=== PATIENT | male | born 1960 | race African-American/Black ===

== ENCOUNTER 2017-08-23 07:59 | Inpatient (IN) | payer OTHER ==
[~2017-08-23] VITALS: Ht 165.1 cm; Wt 117.0 kg
--- NOTE | ~2017-08-23 | EKG ---
[address] [place] [address] ELECTROCARDIOGRAM REPORT Name: ELENA BARNES Room #: [facility] M.R.#: [id number] Admission: Attend Phys: Discharge: Date of : 60 Report #: [id number] THIS REPORT FOR: //name// [facility] ED Test Date: 2017-08-23 Test Time: 08:01:55 Pat Name: ELENA BARNES Department: Room: Gender: M Physiotherapy Assistant: [facility] : 1960 Requested By: Tex Garrido Order Number: [id number] MD: Benjamín Jacobo Measurements Intervals [place] Rate: 113 P: IA: QRS: -47 QRSD: 87 T: 59 QT: 339 QTc: 465 Interpretive Statements Atrial fibrillation Left anterior fascicular block No previous ECG available for comparison Electronically Signed On 08-23-2017 8:18:27 CDT by Benjamín Jacobo [email or web address] <ELECTRONICALLY SIGNED> By: Benjamín Jacobo MD, [facility] 08/23/17 0818 0801 0801 Benjamín Jacobo MD, FACC /EPI
--- NOTE | ~2017-08-23 | CATHLAB ---
[facility] [place] [address] INVASIVE PROCEDURE REPORT Name: ELENA BARNES Room #: 219-P ADM IN M.R.#: [id number] Admission: 08/23/17 Attend Phys: Meera Baird MD Discharge: Date of : 60 Date of Service: 08/25/17 1625 Report #: [id number] THIS REPORT FOR: //name// APPROVED REPORT Study performed: 08/25/2017 10:57:55 Patient Details Patient Status: In-Patient Room #: The patient is a 57 year-old male Event Personnel Osei Posadas Leather Sprayer, Nate Trevino RN RN, Dirk Salomon RN, Dominga Simons [place], Christine RTNancie Monitor Procedures Performed Left Heart Cath w/or w/o Coronaries [id number] [facility] Indication Positive stress test, Chest pain Risk Factors Hypercholesterolemia, Hypertension, Diabetes Procedure Narrative The Right Groin^ was infiltrated with 1% Lidocaine subcutaneous anesthesia. A PINNACLE 4FR Sheath #[id number] sheath was inserted into the RFA^. Coronary angiography was performed using coronary diagnostic catheters. The right coronary system was accessed and visualized with a JR4 catheter. The left coronary system was accessed and visualized with a JL4 catheter. The left ventricle was accessed and visualized with a PIGTAIL catheter. Left ventricular/Aortic Valve gradient assessed via catheter pullback. Left ventriculogram was performed in 30 degree projection. Hemostasis was obtained with manual pressure following sheath removal without any complications. The patient tolerated the procedure well and there were no complications associated with the procedure. There was no hematoma. Intraoperative Conscious Sedation Sedation start time: 11.36 Case end Time: 11.58 Fentanyl 50 mcg Versed 1.5 mg [facility] [address] [place] [address] INVASIVE PROCEDURE REPORT Name: ELENA BARNES Room #: 219-P [facility] IN ..#: [id number] Admission: 08/23/17 Attend Phys: Meera Baird MD Discharge: Date of : 60 Date of Service: 08/25/17 1625 Report #: [id number] Fluoro Time: 1.28 minutes Dose: DAP 4166.70 cGycm2 595 mGy Contrast Type and Amount: Omnipaque 120 ml Coronary Angiography The patient's coronary anatomy is right dominant. Diagnostic Cath Left Main Patent vessel, no flow-limiting lesions. LAD Moderate size caliber vessel, traveling down the anterior wall and terminating in the distal inferior segment. There are no flow-limiting lesions in the LAD. Diagonal 1 Patent vessel, with no flow-limiting lesions. Circumflex Codominant vessel, supplying several obtuse marginal arteries. OM1 Patent vessel, with no flow-limiting lesions. OM2 Patent vessel, with no flow-limiting lesions. OM3 Patent vessel, with no flow-limiting lesions. Right Coronary Patent vessel, with no flow-limiting lesions. Left Ventriculography The left ventricle is normal in size with normal contractility. The left ventricular ejection fraction is estimated to be >55%. Hemodynamics The aortic pressure is 165/96 mmHg with a mean of 122 mmHg. The left ventricular pressure is 166/13 mmHg with a mean of mmHg. The left ventricular end diastolic pressure is 28 mmHg. There was no gradient across the aortic valve upon pullback. Pullback from the left ventricle to the aorta revealed no gradient across the aortic valve. Conclusion 1. Angiographically normal coronary arteries. 2. Codominant system. 3. Normal LV systolic function. 4. Recommend risk factor management. <ELECTRONICALLY SIGNED> By: Osei Posadas MD 08/25/17 1625 24 162 Osei Posadas MD /INF
--- NOTE | ~2017-08-23 | 2DMMODE ---
[facility] [address] [place] [address] 2 D/M-MODE ECHOCARDIOGRAM Name: ELENA BARNES Room #: 219-P ADM IN M.R.#: [id number] Admission: 08/23/17 Attend Phys: Meera Baird MD Discharge: Date of : 60 Date of Service: 08/23/17 1342 Report #: [id number] THIS REPORT FOR: //name// APPROVED REPORT Study performed: 08/23/2017 12:49:13 EXAM: Comprehensive 2D, Doppler, and color-flow Echocardiogram Patient Location: Bedside Room #: 219 Status: routine BSA: 2.16 HR: 71 bpm BP: 137/89 mmHg Rhythm: Atrial Fibrillation Other Information Study Quality: Good Indications Short of breath, palpitations, Afib. Hx: Afib with cardioversion in 2006. HTN, HLP 2D Dimensions RVDd: 34.49 mm LVEF(%): 59.76 (>50%) IVSd: 12.55 (7-11mm) LVOT Diam: 21.95 (18-24mm) LVDd: 45.18 mm PWd: 9.96 (7-11mm) Ascending Ao: 33.38 (22-36mm) LVDs: 30.88 (25-40mm) Aortic Root: 34.34 mm Scott's LVEF: 59.76 % Volumes Left Atrial Volume (Systole) Single Plane 4CH: 53.12 mL Single Plane 2CH: 69.92 mL LA ESV Index: 31.00 mL/m2 Aortic Valve AoV Peak King.: 1.24 m/s AO Peak Gr.: 6.21 mmHg LVOT Max P.27 mmHg LVOT Max V: 0.90 m/s EMILIE Vmax: 2.76 cm2 Mitral Valve MV Decel. Time: 180.96 ms [facility] [place] [address] 2 D/M-MODE ECHOCARDIOGRAM Name: ELENA BARNES Room #: 219-P [facility] IN M.R.#: [id number] Admission: 08/23/17 Attend Phys: Meera Baird MD Discharge: Date of : 60 Date of Service: 08/23/17 1342 Report #: [id number] MV E Max King.: 1.00 m/s Pulmonary Valve PV Peak King.: 0.81 m/s PV Peak Gr.: 2.65 mmHg Pulmonary Vein P Vein S: 0.39 m/s P Vein D: 0.52 m/s P Vein S/D Ratio: 0.75 Tricuspid Valve RAP Estimate: 5.00 mmHg Left Ventricle The left ventricle is normal size. There is normal LV segmental wall motion. Mild basal septal hypertrophy is present. Left ventricular systolic function is normal. LVEF is 60-65%. This study is not technically sufficient to allow evaluation of the LV diastolic function due to atrial fibrillation. Right Ventricle The right ventricle is normal size. The right ventricular systolic function is normal. Atria The left atrium size is normal. The right atrium size is normal. Aortic Valve Aortic valve leaflets are mildly thickened. No aortic regurgitation is present. There is no aortic valvular stenosis. Mitral Valve The mitral valve is normal in structure. Trace mitral regurgitation. No evidence of mitral valve stenosis. Tricuspid Valve The tricuspid valve is normal in structure. There is no tricuspid valve regurgitation noted. Unable to assess PA pressure. Pulmonic Valve The pulmonary valve is normal in structure. Trace pulmonic regurgitation. Great Vessels The aortic root is normal in size. The ascending aorta is normal in [facility] [address] [place] [address] 2 D/M-MODE ECHOCARDIOGRAM Name: ELENA BARNES Room #: 219-P [facility] IN .R.#: [id number] Admission: 08/23/17 Attend Phys: Meera Baird MD Discharge: Date of : 60 Date of Service: 08/23/17 1342 Report #: [id number] size. IVC is normal in size and collapses >50% with inspiration. Pericardium There is no pericardial effusion. <Conclusion> The left ventricle is normal size. Left ventricular systolic function is normal. The right ventricle is normal size. The left atrium size is normal. The right atrium size is normal. There is no aortic valvular stenosis. Trace mitral regurgitation. There is no tricuspid valve regurgitation noted. Unable to assess PA pressure. There is no pericardial effusion. <ELECTRONICALLY SIGNED> By: Osei Posadas MD 08/23/171341 41 41 Osei Posadas MD /INF
[2017-08-23 08:02] VITALS: BP 200/96
[2017-08-23 08:28] LABS: HEMATOCRIT 44.3 % (42.0-52.0); HEMOGLOBIN 14.4 gm/dL (14.0-18.0); MCH 25.8 pg (26.0-34.0); MCHC 32.6 g/dL (28.0-37.0); MCV 79.2 fL (80.0-100.0); PLATELET COUNT 251 thou/uL (150-400); RDW 15.6 % (10.5-14.5); WBC 7.5 thou/uL (4.0-11.0)
[2017-08-23 08:33] LABS: ANION GAP 4 mmol/L (7-16); BUN 17 mg/dL (7-18); CALCIUM 8.8 mg/dL (8.5-10.1); CHLORIDE 103 mmol/L (98-107); CO2 29 mmol/L (21-32); CREATININE 1.5 mg/dL (0.7-1.3); GLUCOSE 140 mg/dL (74-106); POTASSIUM 3.6 mmol/L (3.5-5.1); SODIUM 136 mmol/L (136-145)
[2017-08-23 08:42] LABS: TROPONIN-I <0.06 ng/mL (<0.06)
[2017-08-23 09:13] LABS: PLATELET ESTIMATE NORMAL
[2017-08-23 10:36] VITALS: BP 139/79
[2017-08-23 11:06] VITALS: BP 124/74
[2017-08-23 11:17] VITALS: BP 137/89
[2017-08-23 13:09] LABS: CHOLESTEROL 154 mg/dL (<200); HDL CHOLESTEROL 30 mg/dL (>40); LDL CHOLESTEROL 87 mg/dL (<100); TC:HDL 5.1 Ratio (Not establshd); TRIGLYCERIDE 186 mg/dL (<150); VLDL 37 mg/dL (<40)
[2017-08-23] MEDS ORDERED: FLONASE 0.05%50 MCG NASAL (17:39)
[2017-08-23] MEDS ORDERED: TRAMADOL 50 MG50 MG PO (17:40)
[2017-08-23] MEDS ORDERED: CRESTOR10 MG PO (17:41)
[2017-08-23] MEDS ORDERED: ZANTAC 150MG T150 MG PO (17:42)
[2017-08-23] MEDS ORDERED: IBUPROFEN 200200 M1 PO (17:43)
[2017-08-23] MEDS ORDERED: CLARITIN10 MG PO (17:44)
[2017-08-23] MEDS ORDERED: ULTRACET TABLET1 TAB PO (17:46)
[2017-08-23] MEDS ORDERED: CHILDREN'S ASPI81 M1 PO (17:54)
[2017-08-23] MEDS ORDERED: METFORMIN HCL500 MG PO (17:55)
[2017-08-23] MEDS ORDERED: VITAMIN D1000 UNI1 PO (17:55)
[2017-08-23] MEDS ORDERED: CALCIUM 600 +1 EAC1 PO (17:56)
[2017-08-23 18:15] LABS: AMP/METHAMP Negative (Negative); BARBITURATES Negative (Negative); BENZODIAZEPINES Negative (Negative); COCAINE Negative (Negative); METHADONE Negative (Negative); OPIATES Negative (Negative); PCP Negative (Negative)
[2017-08-23 20:34] VITALS: BP 124/88
[2017-08-24 00:41] VITALS: BP 109/76
[2017-08-24 04:13] VITALS: BP 139/75
[2017-08-24 04:51] LABS: HEMATOCRIT 43.6 % (42.0-52.0); HEMOGLOBIN 14.3 gm/dL (14.0-18.0); MCH 25.6 pg (26.0-34.0); MCHC 32.7 g/dL (28.0-37.0); MCV 78.3 fL (80.0-100.0); RBC 5.57 mil/uL (4.50-6.00); RDW 15.6 % (10.5-14.5); WBC 7.5 thou/uL (4.0-11.0)
[2017-08-24 05:17] LABS: CREATININE 1.4 mg/dL (0.7-1.3)
[2017-08-24 07:44] LABS: GLYCOHEMOGLOBIN (HGB A1C) 6.1 % (4.8-5.6)
[2017-08-24 10:55] VITALS: BP 122/84
[2017-08-24 16:20] VITALS: BP 128/78
[2017-08-25] VITALS (13 sets, daily range): BP systolic 104–130; BP diastolic 59–82
[2017-08-25 05:04] LABS: CALCIUM 8.5 mg/dL (8.5-10.1); CREATININE 1.4 mg/dL (0.7-1.3); POTASSIUM 3.9 mmol/L (3.5-5.1)
[2017-08-25 05:07] LABS: HEMATOCRIT 41.8 % (42.0-52.0); HEMOGLOBIN 13.4 gm/dL (14.0-18.0); MCH 25.3 pg (26.0-34.0); MCHC 32.2 g/dL (28.0-37.0); MCV 78.8 fL (80.0-100.0); RBC 5.31 mil/uL (4.50-6.00); RDW 15.6 % (10.5-14.5); WBC 5.9 thou/uL (4.0-11.0)
[2017-08-25] MEDS ORDERED: CRESTOR10 MG PO (16:09)
[2017-08-25] MEDS ORDERED: METOPROLOL SUCC50 MG PO (16:09)
[2017-08-25] MEDS ORDERED: METFORMIN HCL500 MG PO (16:13)
== END 2017-08-25 19:02 | disposition home or self-care (01) | DRG 287 ==
LOC: ER 07:59 → 2N 10:04 → EROBS 10:04 → 2N 11:29
PROVIDERS: Emergency Medicine; Hospitalist; Internal Medicine; Nurse Practitioner Gerontology
PROC: B2151ZZ Fluoroscopy of Left Heart using Low Osmolar Contrast (ICD-10-PCS; principal; 2017-08-25)
PROC: 4A023N7 Measurement of Cardiac Sampling and Pressure, Left Heart, Percutaneous Approach (ICD-10-PCS; principal; 2017-08-25)
PROC: B2111ZZ Fluoroscopy of Multiple Coronary Arteries using Low Osmolar Contrast (ICD-10-PCS; principal; 2017-08-25)
DX: I48.0 Paroxysmal atrial fibrillation (principal); N17.9 Acute kidney failure, unspecified; I10 Essential (primary) hypertension; M19.90 Unspecified osteoarthritis, unspecified site; K21.9 Gastro-esophageal reflux disease without esophagitis; E78.5 Hyperlipidemia, unspecified; E11.65 Type 2 diabetes mellitus with hyperglycemia; G47.33 Obstructive sleep apnea (adult) (pediatric); E03.9 Hypothyroidism, unspecified; M54.40 Lumbago with sciatica, unspecified side; Z79.51 Long term (current) use of inhaled steroids; Z79.82 Long term (current) use of aspirin; Z79.84 Long term (current) use of oral hypoglycemic drugs; Z79.899 Other long term (current) drug therapy; Z88.8 Allergy status to other drugs, medicaments and biological substances
CPT/HCPCS: 10081

== ENCOUNTER 2021-02-13 21:35 | Emergency (ER) | payer OTHER ==
[~2021-02-13] VITALS: Ht 165.1 cm; Wt 122.5 kg
[~2021-02-13 21:35] MED LIST: CALCIUM 600 +1 EAC1 PO; CHILDREN'S ASPI81 M1 PO; CLARITIN10 MG PO; CRESTOR10 MG PO; FLONASE 0.05%50 MCG NASAL; IBUPROFEN 200200 M1 PO; METFORMIN HCL500 MG PO; METOPROLOL SUCC50 MG PO; TRAMADOL 50 MG50 MG PO; ULTRACET TABLET1 TAB PO; VITAMIN D1000 UNI1 PO; ZANTAC 150MG T150 MG PO
[2021-02-13 21:38] VITALS: BP 164/79
[2021-02-13] MEDS ORDERED: AZITHROMYCIN 2250 MG PO (22:28)
[2021-02-13] MEDS ORDERED: TESSALON PERLE100 MG PO (22:28)
[2021-02-13] MEDS ORDERED: PROAIR HFA8.5 GM INH (22:28)
== END 2021-02-13 23:03 | disposition home or self-care (01) ==
LOC: ER 21:35
DX: U07.1 COVID-19 (principal); J12.82 Pneumonia due to coronavirus disease 2019; I48.91 Unspecified atrial fibrillation; Z98.890 Other specified postprocedural states; Z79.84 Long term (current) use of oral hypoglycemic drugs; Z79.82 Long term (current) use of aspirin; Z79.899 Other long term (current) drug therapy; Z88.8 Allergy status to other drugs, medicaments and biological substances

== ENCOUNTER 2021-02-17 15:13 | Emergency (ER) | payer OTHER ==
[~2021-02-17] VITALS: Ht 165.1 cm; Wt 122.5 kg
[~2021-02-17 15:13] MED LIST changes: +AZITHROMYCIN 2250 MG PO; +PROAIR HFA8.5 GM INH; +TESSALON PERLE100 MG PO
[2021-02-17 15:16] VITALS: BP 133/78
== END 2021-02-17 17:43 | disposition home or self-care (01) ==
LOC: ER 15:13
DX: U07.1 COVID-19 (principal); I48.91 Unspecified atrial fibrillation; Z87.891 Personal history of nicotine dependence; Z88.8 Allergy status to other drugs, medicaments and biological substances; Z79.82 Long term (current) use of aspirin; Z79.899 Other long term (current) drug therapy; Z98.890 Other specified postprocedural states